=== PATIENT | male | born 1945 | race Two or more races ===

== ENCOUNTER → 2016-08-07 | Outpatient (CLI) | payer MEDICARE, MEDICAID ==
[~2016-08-07] MED LIST: CIPR-245 PO; GLYB5TAB8 PO; LISI5TAB PO; METF10002 PO; METF500T4 PO; SULFAMETH PO; VICOT PO; [UNRECOGNIZED DRUG - OTHER] PO
== END | disposition home or self-care (01) ==
LOC: RADPV 09:30
PROVIDERS: ATTEND Podiatrist Foot & Ankle Surgery
DX: L97.522 Non-pressure chronic ulcer of other part of left foot with fat layer exposed (principal); Z89.432 Acquired absence of left foot

== ENCOUNTER → 2016-09-26 | Outpatient (CLI) | payer MEDICARE, MEDICAID ==
[~2016-09-26] MED LIST changes: +ASPI81 PO; +ATOR40TA28 PO; +CARV12 PO; +CARV25 PO; +DRON400T PO; +DSS100 PO; +FURO40 PO; +GLIP10 PO; +HYDR-309 PO; +INSLAN SQ; +ISOS5TAB5 PO; +LEVO125 PO; +LORA10TA7 PO; +MECL-111 PO
== END | disposition home or self-care (01) ==
LOC: RADPV 10:06
PROVIDERS: ATTEND Podiatrist Foot & Ankle Surgery
DX: M86.172 Other acute osteomyelitis, left ankle and foot (principal)

== ENCOUNTER 2018-07-31 22:51 | Emergency (ER) | payer MEDICARE, MEDICAID ==
[~2018-07-31] VITALS: Ht 177.8 cm; Wt 95.5 kg
[~2018-07-31 22:51] MED LIST changes: -CARV25 PO; -CIPR-245 PO; -DRON400T PO; -GLYB5TAB8 PO; -LISI5TAB PO; -LORA10TA7 PO; -MECL-111 PO; -METF10002 PO; -METF500T4 PO; -SULFAMETH PO; -VICOT PO; -[UNRECOGNIZED DRUG - OTHER] PO
[2018-07-31 23:55] LABS: BASOPHILS % (AUTO) 0.8 % (0.0-2.0); EOSINOPHILS % (AUTO) 6.4 % (1.0-6.0); HEMATOCRIT 36.5 % (41-53); HEMOGLOBIN 11.7 g/dL (13.5-17.5); LYMPHOCYTES # (AUTO) 1.8 K/uL (1.0-4.8); LYMPHOCYTES % (AUTO) 19.5 % (22.0-44.0); MEAN CORPUSCULAR HEMOGLOBIN 28.6 pg (26.0-34.0); MEAN CORPUSCULAR HGB CONC 32.1 G/dL (31.0-37.0); MEAN CORPUSCULAR VOLUME 89 fL (80-100); MONOCYTES # (AUTO) 1.1 K/uL (0.1-1.0); MONOCYTES % (AUTO) 11.7 % (2.0-9.0); NEUTROPHILS # (AUTO) 5.7 K/uL (1.8-7.7); NEUTROPHILS % (AUTO) 61.6 % (40.0-70.0); PLATELET COUNT (AUTO) 219 K/uL (150-450); RED CELL DISTRIBUTION WIDTH 12.8 % (11.5-14.5)
[2018-08-01 00:15] LABS: ALANINE AMINOTRANSFERASE 29 U/L (12-78); ALBUMIN 2.7 g/dL (3.4-5.0); ALKALINE PHOSPHATASE 181 U/L (46-116); ANION GAP 8 mmol/L (8-16); ASPARTATE AMINOTRANSFERASE 23 U/L (15-37); BILIRUBIN,TOTAL 0.5 mg/dL (0.1-1.0); CALCIUM, TOTAL 8.4 mg/dL (8.8-10.5); CARBON DIOXIDE 26 mmol/L (22-29); CHLORIDE 106 mmol/L (98-107); CREATININE 3.85 mg/dL (0.60-1.30); GLOMERULAR FILTR. RATE CALC 15 mL/min (>60); POTASSIUM 4.5 mmol/L (3.5-5.1); SODIUM SERUM 140 mmol/L (136-145); TOTAL PROTEIN, SERUM 6.4 g/dL (6.4-8.2); UREA NITROGEN, BLOOD 57 mg/dL (7-18)
[2018-08-01 00:19] LABS: GLUCOSE,RANDOM 46 mg/dL (70-110)
[2018-08-01 00:38] LABS: APPEARANCE,URINE CLEAR (CLEAR); BILIRUBIN,URINE NEGATIVE (NEGATIVE); GLUCOSE, URINE (UA) 500 mg/dL (NEGATIVE); KETONES,URINE NEGATIVE (NEGATIVE); LEUKOCYTE ESTERASE ,URINE NEGATIVE (NEGATIVE); NITRATE,URINE NEGATIVE (NEGATIVE); OCCULT BLOOD,URINE NEGATIVE (NEGATIVE); PROTEIN,URINE SEE CONFIRM (NEGATIVE); UROBILINOGEN,URINE 0.2 mg/dL (<=1.0)
[2018-08-01 00:44] LABS: GLUCOSE,POINT OF CARE 95 MG/DL (70-110)
[2018-08-01 00:44] LABS: AMPHET/METH SCREEN,URINE NEGATIVE (NEGATIVE); BARBITURATE SCREEN, URINE NEGATIVE (NEGATIVE); BENZODIAZEPINES SCREEN,URINE NEGATIVE (NEGATIVE); CANNABINOID SCREEN,URINE NEGATIVE (NEGATIVE); COCAINE SCREEN,URINE NEGATIVE (NEGATIVE); METHADONE SCREEN, URINE NEGATIVE (NEGATIVE); OPIATE SCREEN,URINE NEGATIVE (NEGATIVE); PHENCYCLIDINE SCREEN,URINE NEGATIVE (NEGATIVE)
[2018-08-01 00:47] LABS: RBC,URINE 0-2 /HPF (0-2)
[2018-08-01 00:48] LABS: BACTERIA,URINE None Seen /HPF (None Seen); SQUAMOUS EPITHELIAL CELL,UR Few /LPF (None Seen); WBC,URINE 0-2 /HPF (0-5)
[2018-08-01 00:49] LABS: SULFOSALICYLIC ACID,URINE 3+ (Negative)
[2018-08-01 01:39] LABS: GLUCOSE,POINT OF CARE 186 MG/DL (70-110)
[2018-08-01 02:18] LABS: GLUCOSE,POINT OF CARE 231 MG/DL (70-110)
[2018-08-01 02:49] LABS: GLUCOSE,POINT OF CARE 258 MG/DL (70-110)
[2018-08-01 02:50] VITALS: BP 139/74
== END 2018-08-01 02:58 | disposition home or self-care (01) ==
LOC: EMS 22:52
DX: T38.3X1A Poisoning by insulin and oral hypoglycemic [antidiabetic] drugs, accidental (unintentional), initial encounter (principal); E11.649 Type 2 diabetes mellitus with hypoglycemia without coma; E78.00 Pure hypercholesterolemia, unspecified; E03.9 Hypothyroidism, unspecified; E11.69 Type 2 diabetes mellitus with other specified complication; M86.8X7 Other osteomyelitis, ankle and foot; I11.0 Hypertensive heart disease with heart failure; I50.9 Heart failure, unspecified; Z95.0 Presence of cardiac pacemaker; Z79.899 Other long term (current) drug therapy; Z88.0 Allergy status to penicillin; Z88.6 Allergy status to analgesic agent; Z79.4 Long term (current) use of insulin; Y92.89 Other specified places as the place of occurrence of the external cause
CPT/HCPCS: 36415; 80053; 80307; 81001; 81002; 82962; 85025; 93005; 99291; G0480; 82948